=== PATIENT | male | born 2000 | race Caucasian/White ===

== ENCOUNTER 2024-08-26 17:51 | Emergency (ER) | payer OTHER, SELFPAY ==
[2024-08-26 18:03] VITALS: BP 133/77
[2024-08-26 18:24] LABS: % Immature Granulocytes 0.8 % (0-0.5); % Monocytes 8.6 % (1.7-9.3); % Neutrophils 59.6 % (42.2-75.2); Absolute Basophils 0.1 10^3/uL (0-0.2); Absolute Eosinophils 0.4 10^3/uL (0-0.7); Absolute Immature Granulocytes 0.1 10^3/uL (0-0.05); Absolute Lymphocytes 1.8 10^3/uL (1.2-3.4); Absolute Monocytes 0.6 10^3/uL (0.1-0.6); Absolute Neutrophils 4.3 10^3/uL (1.4-6.5); Hematocrit 49.8 % (39.0-52.0); Hemoglobin 17.4 g/dL (13.0-18.0); Mean Corp Hgb Conc. 34.9 g/dL (33.0-37.0); Mean Corpuscular Hgb 29.2 pg (27.0-31.0); Mean Corpuscular Volume 83.7 fL (80.0-94.0); Mean Platelet Volume 9.7 fL (7.4-10.4); Nucleated Red Blood Cells % 0 % (-); Platelet Count 211 10^3/uL (130-400); Red Blood Cell Count 5.95 10^6/uL (4.70-6.10); Red Cell Dist. Width 12.5 % (11.5-14.5); White Blood Cell Count 7.2 10^3/uL (4.8-10.8)
[2024-08-26 18:37] LABS: ALT (SGPT) 21 U/L (0-50); AST (SGOT) 26 U/L (17-59); Albumin 4.9 g/dl (3.5-5.0); Alkaline Phosphatase 92 U/L (38-126); Blood Urea Nitrogen 13 mg/dl (9-20); Calcium 9.3 mg/dl (8.4-10.2); Carbon Dioxide 30 mmol/L (22-30); Chloride 98 mmol/L (98-107); Glucose 96 mg/dl (70-99); Potassium 4.2 mmol/L (3.5-5.1); Sodium 139 mmol/L (135-145); Total Bilirubin 0.5 mg/dl (0.2-1.3); Total Protein 7.7 g/dl (6.3-8.2); eGFR > 60.00
[2024-08-26 21:31] VITALS: BP 127/92
[2024-08-26 21:44] LABS: Urine Albumin Negative (Neg - Trace); Urine Bilirubin Negative (Negative); Urine Character Clear (Clear); Urine Color Yellow; Urine Glucose Negative (Negative); Urine Ketone Negative (Negative); Urine Leukocyte Negative (Negative); Urine Nitrite Negative (Negative); Urine Occult Blood 4+ (Negative); Urine Urobilinogen Negative (Neg - 1+)
[2024-08-26 21:49] LABS: Urine Squamous Cell 0-2 /LPF (Few)
[2024-08-26 21:50] LABS: Urine Bacteria Few (Negative); Urine White Cell 0-2 /HPF (0-5)
[2024-08-26 22:00] VITALS: BP 122/69
--- NOTE | 2024-08-26 22:36 | ED.GENMED ---
History of Present Illness
General
Chief Complaint: Abdominal Pain
Source: patient
Exam Limitations: none
Time Seen by Provider: 08/26/24 20:28
History of Present Illness
History of Present Illness:
23-year-old male who presents with pain in the right flank into the right lower quadrant. Patient has a history kidney send states it feels just like the previous kidney stones. He states that the pain was severe and is down out of a 2 or 3. He
states he feels much better. He was mostly concerned because the last time he had a call an ambulance while in college. Patient denies fevers. No injury. He states last time his urine was orange or red. This time it has not been orange or red.
Mom states that he did take Advil
Past History
Past History
ED Past Medical History: Asthma and Other (Kidney stones)
Social History
Tobacco: Non-smoker
Employment: Student
Phy Exam
Physical Exam
Physical Exam:
CONSTITUTIONAL Patient alert and oriented to person, place and time. Well-appearing. Vital signs reviewed.
HEAD atraumatic, normocephalic.
EYES eyelids normal to inspection, Extraocular muscles intact, Conjunctiva normal, Sclera normal.
NECK normal range of motion, Trachea midline, no jugular venous distention.
RESPIRATORY CHEST No respiratory distress noted, Chest expansion equal, Bilateral breath sounds clear.
CARDIOVASCULAR regular rate and rhythm, Heart sounds normal.
ABDOMEN abdomen nontender, Bowel sounds normal. No distention.
BACK normal inspection, no obvious deformities, no CVA tenderness
UPPER EXTREMITY range of motion normal, Motor strength normal, no cyanosis, no edema.
LOWER EXTREMITY range of motion normal, Motor strength normal, no cyanosis, no edema.
NEURO Speech normal, No focal motor deficits, [place] coma scale 15, Memory normal, Cranial Nerves intact to screening exam.
SKIN skin warm, dry, and normal in color.
Course
Orders/Labs/Results
Orders:
Orders
08/26/24 18:14
Complete Blood Count/With Diff Urgent
Comprehensive Metabolic Panel Urgent
08/26/24 21:29
Urinalysis Reflex To Culture Urgent
Date Specimen was Collected: 08/26/24
Time Specimen was Collected: :28
Urine Microscopic Reflex Cult Urgent
Abnormal Lab Results
08/26/24 08/26/24
18:14 21:29
Abs Immat Gran (auto) 0.1 H 10^3/uL
(0-0.05)
Immature Gran % 0.8 H %
(0-0.5)
Ur Occult Blood Reflex 4+ A
(Negative)
Urine RBC 3-6 A /HPF
(0-2)
Urine Bacteria (Reflex) Few A
(Negative)
08/26/24 18:14
08/26/24 18:14
Vital Signs
Initial and Last Documented VS:
Initial Vital Signs
Temp Pulse Resp BP Pulse Ox
97.6 F 83 18 133/77 99
08/26/24 18:03 08/26/24 18:03 08/26/24 18:03 08/26/24 18:03 08/26/24 18:03
Last Documented Vital Signs
Temp Pulse Resp BP Pulse Ox
97.6 F 81 18 127/92 99
08/26/24 18:03 08/26/24 21:31 08/26/24 18:03 08/26/24 21:31 08/26/24 21:31
MDM/Problems Addressed
MDM/Problems Addressed:
Ureteral colic
*Pulse Oximetry
Patient hypoxic: no
*Critical Care Note
Total Time (30-74mins, 75-104mins- exclusive of procedures): Not Applicable
Data Reviewed
Source: patient and family
Further Testing Considered But Not Given:
Consider CT scan but pain much improved and his pain is same as previous kidney stones. Was told in the past that he had stones in his kidneys that could come out in the future
Patient Management
Escalation/DeEscalation of care consider admission/obs:
Consider CT but will hold off as pain is improved and I do suspect ureteral colic/nephrolithiasis. Will refer to outpatient urology follow-up as pain is well-controlled. IM Toradol to try to get the pain is 0. Treat with Flomax and outpatient
follow-up.
ED Attending Note
-
Portions of this chart may have been created with voice recognition software.� Occasional wrong word or��sound alike� substitutions may have occurred due to the inherent limitations of voice recognition software.
Discharge Plan
Departure
Patient Disposition: Home (Routine Discharge)
Date of Disposition: 08/26/24
Time of Disposition: 22:36
Patient with high blood pressure during this ER visit?: No
Discharge Problem:
Colic, ureteral
Instructions: Kidney Stones (DC)
Prescriptions:
New
tamsulosin [Flomax] 0.4 mg capsule
0.4 mg PO HS Qty: 14 0RF
No Action
fluticasone propionate [Flovent HFA] 1 PUFF HFA aerosol inhaler
2 puff inhalation R BID
ProAIR HFA INHALER:
90 mcg inhalation DAILYPRN PRN (Reason: acute sob)
Referrals:
Kumar Berry MD [Family Provider] -
Benjie Ovalle MD [Active] -
Activity Restrictions/Additional Instructions:
Return immediately for intractable pain, intractable vomiting, fevers or any other concerns. Please drink plenty of fluids. Alternate ibuprofen and Tylenol for pain control as discussed and see urology in follow-up in the next 1 to 2 weeks.
Interventions
Interventions:
*Risk Screen - Suicide Last Done: 08/26/24 18:03
*General Assessment Last Done: 08/26/24 18:03
*Neglect/Abuse Screening Last Done: 08/26/24 18:03
[facility]op[facility]-Ryylfbyj[facility] Assessment Last Done: 08/26/24 21:34
Discharge Date and Time
Print Language: WELSH
[2024-08-26] MEDS: FLOMAX 0.4 MG PO (22:50)
[2024-08-26] MEDS: TORADOL 60 MG IM (22:50)
== END 2024-08-26 23:05 | disposition home or self-care (01) ==
LOC: EMR 17:51
PROVIDERS: Student in an Organized Health Care Education/Training Program; EMERGENCY PHYSICIAN Emergency Medicine; FAMILY PHYSICIAN Family Medicine
DX: N23 Unspecified renal colic (principal); Z87.442 Personal history of urinary calculi
CPT/HCPCS: 99284; 96372; 80053; 81003; 81015; 85025